=== PATIENT | female | born 1965 | race Caucasian/White ===

== ENCOUNTER 2019-04-11 10:51 | Inpatient (IN) | payer MEDICAID, OTHER ==
[~2019-04-11] VITALS: Ht 160 cm; Wt 74.3 kg
[~2019-04-11 10:51] MED LIST: IBUP-1542 PO; NOL10 PO
[2019-04-11] MEDS ORDERED: KETOROLAC 30 MG INJ IV STA (11:23)
[2019-04-11] MEDS ORDERED: ONDANSETRON 4 MG INJ IV STA ×2 (11:23→17:07)
[2019-04-11] MEDS ORDERED: morphine 4 MG/ML VIAL IV STA ×2 (11:23→17:07)
[2019-04-11] MEDS ORDERED: SOD CHLORIDE 0.9% 1,000 ML IV STA (11:23)
[2019-04-11] MEDS ORDERED: HYDROmorphONE 2 MG/ML SYG IV STA (11:45)
[2019-04-11] MEDS ORDERED: TAMSULOSIN (SR) 0.4 MG CAP PO ONE (14:00)
[2019-04-11] MEDS ORDERED: ACETAMINOPHEN 325 MG TAB PO PRN ×2 (14:00→18:00)
[2019-04-11] MEDS ORDERED: ONDANSETRON 4 MG INJ IV PRN ×2 (14:00→18:00)
[2019-04-11] MEDS ORDERED: CEFTRIAXONE 1 GM/50 ML (PMX) 50 ML IVPB ONE (14:00)
[2019-04-11] MEDS ORDERED: DOCUSATE SODIUM 100 MG CAP PO PRN (18:00)
[2019-04-11] MEDS ORDERED: morphine 2 MG INJ IV PRN (18:00)
[2019-04-11 19:05] VITALS: BP 126/59; PULSE 67; RESP 18
[2019-04-11 20:38] VITALS: BP 115/57; PULSE 67; RESP 20
[2019-04-11] MEDS: TAMSULOSIN (SR) 0.4 MG CAP PO SCH (20:57)
[2019-04-11 21:04] VITALS: Ht 160 cm; Wt 74.3 kg
[2019-04-11] MEDS: TAMOXIFEN 10 MG TAB PO SCH (22:08)
[2019-04-11] MEDS: SOD CHLORIDE 0.9% 1,000 ML IV SCH (22:16)
[2019-04-12] VITALS (13 sets, daily range): BP systolic 98–134; BP diastolic 55–77; PULSE 64–80; RESP 15–26
[2019-04-12] MEDS: SOD CHLORIDE 0.9% 1,000 ML IV SCH ×3 (06:00→23:23)
[2019-04-12] MEDS: PANTOPRAZOLE (EC) 40 MG TAB PO SCH (06:00)
[2019-04-12] MEDS: CEFTRIAXONE 1 GM/50 ML (PMX) 50 ML IVPB SCH (09:35)
[2019-04-12] MEDS ORDERED: CEFAZOLIN 1 GM INJ ONE (20:10)
[2019-04-12] MEDS ORDERED: GLYCOPYRROLATE 0.4 MG INJ ONE (20:10)
[2019-04-12] MEDS ORDERED: PROPOFOL 20 ML ONE (20:10)
[2019-04-12] MEDS ORDERED: ROCURONIUM 50 MG INJ ONE (20:10)
[2019-04-12] MEDS ORDERED: NEOSTIGMINE 3 MG/3 ML SYRINGE ONE (20:10)
[2019-04-12] MEDS ORDERED: FENTAnyl 50 MCG/ML VIAL ONE (20:11)
[2019-04-12] MEDS ORDERED: ONDANSETRON 4 MG INJ ONE (20:11)
[2019-04-12] MEDS ORDERED: DEXAMETHASONE 4 MG/ML 5 ML INJ ONE (20:11)
[2019-04-12] MEDS ORDERED: MIDAZOLAM 1 MG/ML 2 ML INJ ONE (20:11)
[2019-04-12] MEDS ORDERED: LABETALOL HCL 20MG INJ IV PRN (20:30)
[2019-04-12] MEDS ORDERED: ONDANSETRON 4 MG INJ IV PRN (20:30)
[2019-04-12] MEDS ORDERED: MIDAZOLAM 1 MG/ML 2 ML INJ IV PRN (20:30)
[2019-04-12] MEDS ORDERED: OXYCODONE/ACETAMINOPHEN (5/325) TAB PO PRN ×2 (20:30)
[2019-04-12] MEDS ORDERED: DIPHENHYDRAMINE 50 MG INJ IV PRN (20:30)
[2019-04-12] MEDS ORDERED: hydrALAzine 20 MG INJ IV PRN (20:30)
[2019-04-12] MEDS ORDERED: TRIMETHOBENZAMIDE 100 MG/ML VIAL IM PRN (20:30)
[2019-04-12] MEDS ORDERED: IPRATROPIUM (NEB) 0.5 MG/2.5 ML AMP HHN PRN (20:30)
[2019-04-12] MEDS ORDERED: EPHEDrine 25 MG/5 ML SYG IV PRN (20:30)
[2019-04-12] MEDS ORDERED: ALBUTEROL 0.083% (NEB) 2.5 MG/3 ML AMP HHN PRN (20:30)
[2019-04-12] MEDS ORDERED: HYDROmorphONE 1 MG/5 ML IV SYRINGE IV PRN ×3 (20:30)
[2019-04-12] MEDS ORDERED: MEPERIDINE 25 MG INJ IV PRN (20:30)
[2019-04-12] MEDS ORDERED: FENTAnyl 50 MCG/ML VIAL IV PRN ×2 (20:30)
[2019-04-12] MEDS: FENTAnyl 50 MCG/ML VIAL IV PRN ×2 (22:02→22:09)
[2019-04-12] MEDS: TAMSULOSIN (SR) 0.4 MG CAP PO SCH (23:21)
[2019-04-12] MEDS: TAMOXIFEN 10 MG TAB PO SCH (23:23)
[2019-04-13 02:00] VITALS: BP 118/61; PULSE 77; RESP 17
[2019-04-13] MEDS: HYDROCODONE/APAP (5/325) TAB PO PRN ×3 (02:25→17:01)
[2019-04-13] MEDS: PANTOPRAZOLE (EC) 40 MG TAB PO SCH (06:18)
[2019-04-13] MEDS: KETOROLAC 15 MG INJ IV PRN ×2 (06:22→14:32)
[2019-04-13 07:41] VITALS: BP 91/53; PULSE 67; RESP 16
[2019-04-13] MEDS: CEFTRIAXONE 1 GM/50 ML (PMX) 50 ML IVPB SCH (09:10)
[2019-04-13] MEDS: SOD CHLORIDE 0.9% 1,000 ML IV SCH (09:11)
[2019-04-13 15:13] VITALS: BP 93/50; PULSE 71; RESP 16
[2019-04-13] MEDS ORDERED: POTASSIUM CHLORIDE (SR) 20 MEQ TAB PO STA (16:09)
[2019-04-13 20:42] VITALS: BP 126/63; PULSE 67; RESP 18
== END 2019-04-13 22:30 | disposition home or self-care (01) | DRG 661 ==
LOC: E/R 10:51 → 5EC 13:55
PROVIDERS: ADMIT Internal Medicine Nephrology; ATTEND Internal Medicine Nephrology
PROC: 0T778DZ Dilation of Left Ureter with Intraluminal Device, Via Natural or Artificial Opening Endoscopic (ICD-10-PCS; 2019-04-12)
PROC: 0TC78ZZ Extirpation of Matter from Left Ureter, Via Natural or Artificial Opening Endoscopic (ICD-10-PCS; principal; 2019-04-12 19:30)
DX: N13.2 Hydronephrosis with renal and ureteral calculous obstruction (principal); N39.0 Urinary tract infection, site not specified; K40.90 Unilateral inguinal hernia, without obstruction or gangrene, not specified as recurrent; C50.919 Malignant neoplasm of unspecified site of unspecified female breast; Z79.810 Long term (current) use of selective estrogen receptor modulators (SERMs)
CPT/HCPCS: 36415; 71045; 74018; 74176; 74430; 80048; 80053; 81001; 83690; 83735; 84100; 85025; 85610; 85730; 87086; 88300; 93005; 96374; 96375; C2617; J0690; J0696; J1100; J1170; J1885; J2250; J2270; J2405; J2710; J3010; J7030